=== PATIENT | male | born 1990 | race Caucasian/White ===

== ENCOUNTER 2019-12-02 09:56 | Outpatient (CLI) | payer OTHER | END 2019-12-02 09:57 | disposition home or self-care (01) | LOC: LAB 09:56 | PROVIDERS: ATTEND Surgery | DX: Z01.818 Encounter for other preprocedural examination (principal); R22.2 Localized swelling, mass and lump, trunk; Z20.828 Contact with and (suspected) exposure to other viral communicable diseases ==

== ENCOUNTER 2019-12-06 09:55 | Day surgery (SDC) | payer OTHER ==
[2019-12-06] MEDS ORDERED: DEXAMETHASONE 4 MG/ML VIAL IVP ONE (09:56)
[2019-12-06] MEDS ORDERED: LIDOCAINE-MPF 2% 5 ML VIAL IM ONE (09:56)
[2019-12-06] MEDS ORDERED: PROPOFOL 200 MG/20 ML VIAL IVP ONE (09:56)
[2019-12-06] MEDS ORDERED: KETOROLAC 30 MG/ML VIAL IVP ONE (09:56)
[2019-12-06] MEDS ORDERED: ONDANSETRON 4 MG/2 ML VIAL IVP ONE (09:56)
[2019-12-06] MEDS ORDERED: LACTATED RINGERS 1,000 ML IV ONE (10:27)
--- NOTE | 2019-12-06 11:16 | ANESTHESIA ---
Pre-Anesthesia VS, & Labs - Diagnosis back lipomas - Procedure removal back lipomas Vital Signs: Temp Pulse Resp BP Pulse Ox 36.5 C 73 16 128/80 99 12/06/19 10:00 12/06/19 10:00 12/06/19 10:00 12/06/19 10:00 12/06/19 10:00 Height 5 ft 8 in Weight (kg) 90.5 kg - NPO >8 hours Home Medications and Allergies Home Medications: Ambulatory Orders No Known Home Medications 11/28/19 No Known Home Medications 11/28/19 Allergies/Adverse Reactions: Allergies Allergy/AdvReac Type Severity Reaction Status Date / Time No Known Drug Allergies Allergy Verified 11/28/19 12:23 Anes History & Medical History - Anesthetic History Anesthesia Complications: reports: No previous complications - Medical History Cardiovascular: reports: None Pulmonary: reports: None Gastrointestinal: reports: Chronic constipation Urinary: reports: None Musculoskeletal: reports: None Endocrine/Autoimmune: reports: None Skin: reports: None - Surgical History General: Other Exam General: Alert Dental: WNL Mouth Opening: Greater than 4 Fingerbreadths Neck Mobility: Normal Mallampati classification: I Thyromental Distance: greater than 6 cm Respiratory: Lungs clear Cardiovascular: Regular rate, Normal S1, Normal S2 Plan Anesthesia Type: General Consent for Procedure(s) Verified and Reviewed: Yes Code Status: Attempt Resuscitation ASA classification: 1-Healthy patient Is this case an emergency?: No
[2019-12-06] MEDS ORDERED: BUPIVACAINE 0.25% PF 30 ML VIAL ONE (12:00)
[2019-12-06] MEDS ORDERED: BUPIVACAINE 0.25% PF 30 ML VIAL SUBQ ONE ×2 (12:41→13:05)
[2019-12-06] MEDS ORDERED: HYDROcod/ACETAM 5/325 MG TABLET PO PRN (13:25)
[2019-12-06] MEDS ORDERED: LACTATED RINGERS 300 ML IV ONE (13:26)
[2019-12-06] MEDS ORDERED: ACETAMINOPHEN 1,000 MG/100 ML 100 ML IV ONE (13:40)
[2019-12-06] MEDS: HYDROmorphone 0.5 MG/0.5 ML SYRINGE ONE ×2 (13:45→13:49)
--- NOTE | 2019-12-06 14:01 | OPERATIVE REPORT ---
DATE OF SERVICE: 12/06/2019 Physician: Lyle Poole MD PREOPERATIVE DIAGNOSIS: Painful lumps low back consistent with lipomas. POSTOPERATIVE DIAGNOSIS: Painful lumps low back consistent with lipomas. PROCEDURE PERFORMED: 1. Excision of a total of three 3 x 4 cm soft tissue masses, low back. 2. Intermediate repair, total of three 3.5 cm incisions, low back. SURGEON: Lyle Poole MD INSTALLATION DRAFTER: None. ANESTHESIA: General endotracheal anesthesia. Local anesthesia with Marcaine. COMPLICATIONS: None. SPECIMENS: Clinically, benign not sent for pathology. ESTIMATED BLOOD LOSS: Less than 10 mL COMPLICATIONS: None. INDICATIONS FOR PROCEDURE: The patient is a 29-year-old gentleman with low back tenderness and pain. He believes the pain and tenderness is superficial and not spine related. He states his pain is no t related to activity and he has a point tenderness where he has 2 mobile soft tissue masses, right l ow back and 1 soft tissue mobile left lower back mass. He presents for excision. Risks discussed, a lternatives discussed. All questions answered and consent obtained. He understands his pain may not improve after this. DESCRIPTION OF PROCEDURE: The patient was properly identified, brought to the operating room. Gener al endotracheal anesthesia was induced while on stretcher. He was carefully repositioned prone. Seq uential compression devices were used. He was prepped and draped in a sterile fashion. Antibiotics were not given. Local anesthetic was given to the area. The 3 areas were previously marked. The ve rtical incisions were made directly over the palpable masses. The palpable masses were removed in th eir entirety with gentle retraction and cutting current cautery. Hemostasis was assured. Deep subcu taneous tissue was closed with interrupted 2-0 Vicryl suture. Buried interrupted subdermal 3-0 Vicry l suture was then placed. Skin was closed with running 4-0 Monocryl subcuticular suture. Steri-Stri ps and dressings were applied. He tolerated the procedure well. TD: 12/06/2019 13:42
[2019-12-06] MEDS ORDERED: HYDROcod/ACETAM 5/325 MG TABLET ONE (14:23)
[2019-12-06 15:01] VITALS: BP 118/70
== END 2019-12-06 09:56 | disposition home or self-care (01) ==
LOC: SDS 09:55
PROVIDERS: ATTEND Surgery
DX: D17.1 Benign lipomatous neoplasm of skin and subcutaneous tissue of trunk (principal)
CPT/HCPCS: 11404; 12034; A9270; J0131; J1170; J7120

== ENCOUNTER 2020-10-24 15:54 | Outpatient (CLI) | payer OTHER | END 2020-10-24 15:55 | disposition home or self-care (01) | LOC: LAB 15:54 | PROVIDERS: ATTEND Physician Assistant | DX: Z01.812 Encounter for preprocedural laboratory examination (principal); Z20.822 Contact with and (suspected) exposure to COVID-19 ==

== ENCOUNTER 2021-03-29 14:32 | Outpatient (CLI) | payer OTHER ==
[2021-03-29 15:41] VITALS: BP 115/78
--- NOTE | 2021-03-29 15:41 | SLEEP CARE CONSULTATION ---
Information from patient questionnaire entered by Josse Laguerre MA. I have reviewed and concur with the information entered by Josse Laguerre MA. This document represents the service I personally performed and the decisions made by , Corie Lazo ARNP. History of Present Illness Service Date and Time: 03/29/2021 1432 Reason for Visit: New patient Chief Complaint: reports: Unrefreshed sleep, Snoring, Excessive daytime sleepiness, Observed pauses in breathing, Fatigue, Frequent awakenings at night Date of Onset: 3-5 years Usual bedtime: 930 Time it takes to fall asleep: 10 minute Snores at night: Yes Observed to quit breathing while asleep: No Sleeps alone due to snoring: No Number of times waking at night: 3-5 Reasons for waking at night: reports: Snoring, Gasping for air, Other (unknown reason; time anxiety) Toss, Turn, or Twitch while sleeping: Yes Recalls having dreams: No (not usually at night) Usually gets out of bed at: 0530 Feels refreshed in the morning: No Morning headache: Yes (3-4 days, resolve after get up and move around) Sleepy or fatigued during the day: Yes Ever fallen asleep while driving: Yes (no accidents) Takes day naps: No Dreams during day naps: Yes Prior sleep studies: No Additional HPI information: I had the pleasure of seeing MERLY BONILLA today regarding the possibility of him having a sleep disorder. His current complaints are unrefreshed sleep, snoring, excessive daytime sleepiness, frequent night awakenings, observed pauses in breathing and fatigue. He has been in [employer] for 13 years and constantly on rotating shifts and going [place] the [place]. He changed to a day shift since May 2020 but still feels very tired. His has told him he snores and jerking around while asleep. He states when he is sleeping he will wake up gasping for air. He is able to fall asleep quickly but will wake up several times a night. He will wake up at 3-4 AM and cannot go back to sleep. He states he can fall asleep anywhere. He has fallen asleep while driving, but he has not had any accidents. - Parasomnia Symptoms Ever been unable to move upon waking from sleep: No Walks in sleep: No Talks in sleep: Yes Ever acted out dreams in sleep: No Ever felt weak in the knees when startled or emotional: No Bothered by creepy, crawly, restless sensations in legs: No Problems with memory or concentration: Yes (restless night cause his memory to be worse) Subjective Initial [place] Sleepiness Scale score: 18 (2020) Social History The patient's occupation is a ACTIVE DUTY. Patient is Single and lives in [place]. Have you smoked in the past 12 months: No Quit date: 2012 Alcohol use: Yes Alcohol amount and frequency: 6 pack over a weekend Caffeine use: Yes Caffeine amount and frequency: 1 large cup in the morning Family History Family history of sleep disordered breathing: No Allergies and Home Medications Drug allergies reviewed: Yes (NKDA) Home medication list reviewed: Yes (no daily medications or supplements) Review of Systems Weight gain over past 5 years: 20 Weight loss over past 5 years: 40 Cardiovascular: denies: high blood pressure Gastrointestinal: denies: heartburn Neurological: denies: headaches Psychiatric: denies: anxiety, depression, mood disorder Ear/Nose/Throat: reports: wisdom teeth removed (one left). denies: injury to nose, tonsillectomy Endocrine: denies: thyroid disease Immunologic: reports: allergies to food or environment (seasonal) Physical Exam Blood Pressure: 115/78 Cuff size: wrist Heart Rate: 75 O2 Saturation: 98 Height: 5 ft 8 in Weight: 208 lb Body Mass Index: 31.6 BMI Classification: Obese Neck circumference: 15 (inches) Nostrils: patent to airflow Mouth and throat: narrow oropharynx Soft palate: long Hard palate: arched Uvula: normal Uvula visualization: 50% Mallampati Class II Tongue: enlarged in size with teeth patino on lateral edges Tonsils: 1+ Heart: regular rate and rhythm Lungs: clear bilaterally Impression and Plan 1. Suspected Obstructive Sleep Apnea-Hypopnea Syndrome, as suggested by a history of loud and irregular snoring, observed cessation of breath while asleep, gasping or choking in sleep, morning headache, frequent awakening during the night, unrefreshed sleep, cognitive impairment, and excessive daytime sleepiness. Narrow oropharynx and obesity are common predisposing factors for obstructive sleep apnea-hypopnea syndrome. I recommend proceeding to polysomnography to confirm the diagnosis and to assess severity. If the patient has significant sleep disordered breathing, a manual CPAP titration study will also be performed to find the optimal treatment pressure. I informed the patient of what the sleep studies involve and after some discussion, obtained agreement to proceed. The pathophysiology of obstructive sleep apnea-hypopnea syndrome was discussed with the patient and health risks of cardiovascular and cerebrovascular disease if not treated. Risks of drowsy driving discussed in detail and patient advised to avoid long distance driving and to pulling machine operator at the first sign of drowsiness. Patient agreed to plan. * Schedule polysomnography +- manual CPAP titration study and return in 1-2 weeks after the study to discuss result and initiate therapy. * Avoid long distance driving or driving when feeling sleepy. * Avoid alcohol, sedative and muscle relaxant around bedtime. * Attempt to lose weight. * Review instructions provided by trained office staff on how to prepare for the sleep study. * Return for follow-up after sleep study completed. Counseling Topics: Weight loss health impact Visit Type: In Office Time Spent with Patient (minutes): 30 Provider Statement: I spent 100% of the Face to Face Visit with the patient with greater than 50% spent counseling the patient and coordination of care.
== END 2021-03-29 14:33 | disposition home or self-care (01) ==
LOC: SC 14:32
PROVIDERS: ATTEND Nurse Practitioner Family
DX: R06.83 Snoring (principal); R06.81 Apnea, not elsewhere classified; R51.9 Headache, unspecified; R41.89 Other symptoms and signs involving cognitive functions and awareness; G47.10 Hypersomnia, unspecified; E66.9 Obesity, unspecified; Z68.31 Body mass index [BMI] 31.0-31.9, adult
CPT/HCPCS: 99203; 99212

== ENCOUNTER 2021-04-08 12:20 | Outpatient (CLI) | payer OTHER | END 2021-04-08 12:21 | disposition home or self-care (01) | LOC: SC 12:20 | PROVIDERS: ATTEND Nurse Practitioner Family | DX: R06.83 Snoring (principal); R06.81 Apnea, not elsewhere classified; R41.89 Other symptoms and signs involving cognitive functions and awareness; R51.9 Headache, unspecified; G47.8 Other sleep disorders; G47.10 Hypersomnia, unspecified; E66.9 Obesity, unspecified; Z68.31 Body mass index [BMI] 31.0-31.9, adult | CPT/HCPCS: 95806 ==

== ENCOUNTER 2021-04-16 10:09 | Outpatient (CLI) | payer OTHER ==
--- NOTE | 2021-04-16 10:21 | SLEEP CARE CONSULTATION ---
Information from patient questionnaire entered by Josse Laguerre MA. I have reviewed and concur with the information entered by Josse Laguerre MA. This document represents the service I personally performed and the decisions made by , Corie Lazo ARNP. History of Present Illness Service Date and Time: 04/16/2021 1020 Initial [place] Sleepiness Scale score: 18 (2020) Current [place] Sleepiness Scale score: 17 Additional HPI information: MERLY BONILLA returns via video telehealth visit for follow up and results of the recently performed home sleep study. The patient was informed of the following findings: No significant sleep disordered breathing with an average AHI of 1.2 and criilo oxygen saturation of 90%. This is a fair study due to some air signal loss. I explained the pathophysiology behind obstructive sleep apnea. Patient does not have sleep apnea and was advised how weight gain could increase the risk of developing sleep apnea in the future. I strongly encouraged the patient to lose weight. Patient has mild snoring. Snoring can be reduced by weight loss. Weight loss is best achieved with diet consult. Patient instructed to contact PCP for referral. Snoring can also be treated with an oral appliance from a dentist. Advised to check insurance coverage. In addition, an ENT evaluation can be do to see if other treatment is indicated. Patient counseled not drink alcohol less than 4 hours before bedtime as it can increase snoring and apnea. Patient was cautioned about risks of drowsy driving until sleepiness symptoms resolve. Sleep Study - Results Prior sleep studies: No Polysomnography/Home Sleep Study results: Physician Impression: The quality of the study is fair due to partial loss of airflow signal.. The length of the study is adequate (> 240 minutes). Please also see the tabulated and graphic data. 1. No significant sleep disordered breathing, with an AHI of 1.2/hr and cirilo SaO2 of 90%. During the study, the patient had 2 apneas (2 obstructive, 0 central, 0 mixed) and 3 hypopneas. The longest episode lasted 34.0 seconds. The patient slept adequately in supine position (supine AHI was 1.6 and non-supine, 0.67). Allergies and Home Medications Home medication list reviewed: Yes (no changes) Review of Systems Review of systems same as previous: Yes (no changes) Physical Exam Vital signs obtained and entered by: Telehealth visit to reduce exposure during Covid pandemic Height: 5 ft 8 in Impression and Plan 1. Suspected Obstructive Sleep Apnea-Hypopnea Syndrome, as suggested by a h istory of irregular snoring, observed cessation of breath while asleep, gasping or choking in sleep, morning headache, frequent awakening during the night, unrefreshed sleep, cognitive impairment, and excessive daytime sleepiness. His HST was a fair quality study due to loss of air signal and his [place] is 17/24. I would like to repeat the study in the sleep lab to ensure an accurate measurement. I recommend proceeding to polysomnography to confirm the diagnosis and to assess severity. I obtained agreement to proceed. The pathophysiology of obstructive sleep apnea-hypopnea syndrome was discussed with the patient and health risks of cardiovascular and cerebrovascular disease if not treated. Risks of drowsy driving discussed in detail and patient advised to avoid long distance driving and to pulling unit operator at the first sign of drowsiness. Patient agreed to plan. * Schedule polysomnography. * Avoid long distance driving or driving when feeling sleepy. * Avoid alcohol, sedative and muscle relaxant around bedtime. * Attempt to lose weight. * Review instructions provided by trained office staff on how to prepare for the sleep study. * Return for follow-up after sleep study completed. Counseling Topics: Weight loss health impact Visit Type: Telehealth Video Video Type: VSee Patient Location: Home Location of Provider: Office Patient agrees and consents to this telehealth visit type: Yes Patient agrees to have their insurance billed: Yes Time Spent with Patient (minutes): 13 Provider Statement: I spent 100% of the Telehealth Video Call with the patient with greater than 50% spent counseling the patient and coordination of care.
== END 2021-04-16 10:10 | disposition home or self-care (01) ==
LOC: SC 10:09
PROVIDERS: ATTEND Nurse Practitioner Family
DX: R06.83 Snoring (principal); G47.8 Other sleep disorders; R51.9 Headache, unspecified; G47.10 Hypersomnia, unspecified; R41.89 Other symptoms and signs involving cognitive functions and awareness; E66.9 Obesity, unspecified; Z68.31 Body mass index [BMI] 31.0-31.9, adult

== ENCOUNTER 2021-05-29 19:43 | Outpatient (CLI) | payer OTHER | END 2021-05-29 19:44 | disposition home or self-care (01) | LOC: SC 19:43 | PROVIDERS: ATTEND Nurse Practitioner Family | DX: R06.83 Snoring (principal); G47.8 Other sleep disorders; R06.81 Apnea, not elsewhere classified; R51.9 Headache, unspecified; G47.10 Hypersomnia, unspecified; E66.9 Obesity, unspecified; Z68.31 Body mass index [BMI] 31.0-31.9, adult | CPT/HCPCS: 95810 ==

== ENCOUNTER 2021-06-12 08:58 | Outpatient (CLI) | payer OTHER ==
--- NOTE | 2021-06-12 09:50 | SLEEP CARE CONSULTATION ---
Information from patient questionnaire entered by Josse Laguerre MA. I have reviewed and concur with the information entered by Josse Laguerre MA. This document represents the service I personally performed and the decisions made by Clifton omer Caren J, ARNP. History of Present Illness Service Date and Time: 06/12/2021 0858 Initial [place] Sleepiness Scale score: 18 (2020) Current [place] Sleepiness Scale score: 16 (2021) Additional HPI information: MERLY BONILLA returns for follow up and results of the recently performed polysomnography. The patient was informed of the following findings: No significant sleep disordered breathing with an average AHI of 1.3 and cirilo oxygen saturation of 91%. I explained the pathophysiology behind obstructive sleep apnea. Patient does not have sleep apnea and was advised how weight gain could increase the risk of developing sleep apnea in the future. I strongly encouraged the patient to lose weight. Patient has light to moderate snoring. Snoring can be reduced by weight loss. Weight loss is best achieved with diet consult. Patient instructed to contact PCP for referral. Snoring can also be treated with an oral appliance from a dentist. Advised to check insurance coverage. In addition, an ENT evaluation can be do to see if other treatment is indicated. Patient counseled not drink alcohol less than 4 hours before bedtime as it can increase snoring and apnea. Patient was cautioned about risks of drowsy driving until sleepiness symptoms resolve. AAS patient education on How to Sleep Better given and reviewed. Sleep Study - Results Type of Sleep Study: Polysomnography Prior sleep studies: No Polysomnography/Home Sleep Study results: IMPRESSION: The quality of the study is good. The patient had normal sleep efficiency. The sleep architecture was also normal. Respiratory monitoring showed no significant sleep disordered breathing (AHI = 1.3) or hypoxia (cirilo oxygen saturation of 91%). The few respiratory events occurred only during supine sleep (supine AHI = 3.2; non-supine = 0.00). Snore was light to moderate in intensity. There was no significant periodic leg movement of sleep. Cardiac rhythm was normal sinus rhythm without significant arrhythmia. No abnormal behavior (parasomnia) observed during the night. Allergies and Home Medications Known drug allergies: No Drug allergies reviewed: Yes Home medication list reviewed: Yes (no changes) Review of Systems Review of systems same as previous: Yes (no changes) Physical Exam Vital signs obtained and entered by: Cash LAGUERRE CMA AAMA Blood Pressure: 139/99 (RIGHT, PULSE 78) Cuff size: wrist Heart Rate: 87 O2 Saturation: 98 (2 [employer]KS CLOTH [employer] PAPER) Height: 5 ft 8 in Weight: 200 lb (WITH CLOTHES) Body Mass Index: 30.4 BMI Classification: Obese Impression and Plan Snoring but no significant sleep disordered breathing. Patient advised that often weight loss will reduce snoring as well as apnea risk. An oral appliance can also be used for snoring. This would require a dental consultation. Patient cautioned not to use other online appliances as can cause bite issues. A list of accredited dentists in [facility] and one local dentist who makes oral appliances is available in the office. Patient is advised to check if insurance will cover. An ENT consult can also be helpful to determine if any other treatment is an option. * Attempt to lose weight * Avoid alcohol consumption near bedtime * The patient is cautioned about driving until sleepiness is completely resolved. * Return as needed for follow up. Counseling Topics: Weight loss health impact Visit Type: In Office Time Spent with Patient (minutes): 15 Provider Statement: I spent 100% of the Face to Face Visit with the patient with greater than 50% spent counseling the patient and coordination of care.
[2021-06-12 09:51] VITALS: BP 139/99
== END 2021-06-12 08:59 | disposition home or self-care (01) ==
LOC: SC 08:58
PROVIDERS: ATTEND Nurse Practitioner Family
DX: R06.83 Snoring (principal); E66.9 Obesity, unspecified; Z68.30 Body mass index [BMI] 30.0-30.9, adult
CPT/HCPCS: 99212